=== PATIENT | female | born 2000 | race Asian ===

== ENCOUNTER 2025-07-19 15:46 | Emergency (ER) | payer MEDICAID, SELFPAY ==
--- NOTE | ~2025-07-19 | XR_ITS ---
CLINICAL HISTORY: cough x3 weeks 2 view chest x-ray Comparison: None provided Findings: No consolidation or effusion. Normal size heart. No acute fracture. IMPRESSION: 1. No acute findings. This document has been electronically signed by: Wellington Hobson MD on 07/19/2025 22:21:04
[2025-07-19 16:09] VITALS: BP 128/61; PULSE 68; RESP 16; TEMP 36.4; O2SAT 100; BMI 26.4
--- NOTE | 2025-07-19 16:12 | ED_ITS ---
HPI - General Adult General Chief complaint: Upper Respiratory Symptoms Stated complaint: cold and sore throat symptoms Time Seen by Provider: 07/19/25 19:58 Source: patient Mode of arrival: ambulatory Limitations: no limitations History of Present Illness ED Provider: JUANY CORBIN PA-C HPI narrative: 25 year old female presents tot he ED today for evaluation of sore throat, nonproductive cough, and subjective fevers x 3 weeks. She has not trialed any [id number] medications for her symptoms. Related Data Previous Rx's ?Medication ?Instructions ?Recorded benzonatate 100 mg capsule 100 mg PO BID PRN cough #20 caps 07/19/25 Allergies Allergy/AdvReac Type Severity Reaction Status Date / Time No Known Allergies Allergy Verified 07/19/25 16:12 Review of Systems 2 Review of Systems: Yes all other systems are reviewed and are negative [facility] Past Medical History Attestation statement: The following information was validated with the patient. Source: old records reviewed and nursing notes reviewed Social History Social History Advance Directives: No Advance Directives Information Provided: Yes Physical Exam ED Vital Signs: Vital Signs - 24 hr 07/19/25 16:09 Temperature 97.6 F Pulse Rate 68 Respiratory Rate 16 Blood Pressure 128/61 Pulse Oximetry 100 Oxygen Delivery Method Room Air BMI result Body Mass Index 26.4 Vital signs stable, afebrile General: Well appearing, in no acute distress. Skin: Warm, dry, intact. No rashes or lesions. Head: Normocephalic, atraumatic. EENT: Hearing is intact b/l. Conjunctiva clear. Sclera is anicteric. PERRLA. EOM intact. Moist mucous membranes.?posterior oropharynx mildly erythematous. No edema. No tonsillar exudates. No peritonsillar masses. Uvula midline. Controlling secretions, speaking complete sentences Neck: Supple without LAD Cardiac: Chest wall symmetric. RRR Lungs: Normal respiratory effort without accessory muscle use. CTA bilaterally. No rales, rhonchi, or wheezes.? Ext: Upper and lower extremities atraumatic, without tenderness, deformity, swelling or erythema Neuro: AOx3. Normal speech. Ambulating with steady gait Course Course Course Narrative: This is a rapid medical exam performed by Lee Ann Byers NP: Additional HPI, ROS, PE not included below will be deferred to primary provider. Patient is a 25y/o F presenting with complaint of cough, sore throat, subjective fevers. Also specifically requesting A1c level. Plan: strep and viral swabs Reevaluation(s) Reevaluation #1: Labs unremarkable. Strep, COVID, flu negative. Chest x-ray without infiltrate or consolidation to suggest pneumonia. > not consistent with this. Will send patient home with Benja Amlaguer. Advised PCP follow-up up. Medical Decision Making Medical Decision Making [facility] Narrative: 25 year old female presents tot he ED today for evaluation of sore throat, nonproductive cough, and subjective fevers x 3 weeks. Vital signs stable, afebrile. Not hypoxic. She is well-appearing in no acute distress. Exam benign. Differential diagnosis includes viral syndrome, strep throat, pneumonia, bronchitis Plan for viral swabs, screening labs and chest x-ray. Anticipate discharge home. Differential Diagnosis Differential Diagnoses: The differential diagnosis associated with the presentation includes as above. Admission/Observation not indicated. Lab Data [facility] Lab Attestation statement: I reviewed the patient's lab results. as above. 07/19/25 16:24 07/19/25 16:24 Labs: Lab Results 07/19/25 07/19/25 07/19/25 Range/Units 16:21 16:22 16:24 WBC 8.3 (4.8-10.8) X10*3/uL RBC 4.62 (4.20-5.50) X10*6/uL Hgb 11.1 L (12.0-16.0) g/dl Hct 34.4 L (37.0-47.0) % MCV 74.5 L (80.0-98.0) fL MCH 24.0 L (27.0-33.0) pg MCHC 32.3 (31.0-35.0) g/dl RDW 13.7 (11.0-16.0) % Plt Count 367 (160-400) X10*3/uL MPV 9.7 (9.4-12.3) fL Immature Gran % (Auto) 0.5 H (0.0-0.4) % Neut % (Auto) 62.1 (45-73) % Lymph % (Auto) 27.4 (20-40) % [place] % (Auto) 8.5 (2-11) % Eos % (Auto) 1.3 (0-4) % Baso % (Auto) 0.2 (0-2) % Lymph # (Auto) 2.3 (1.2-4.9) X10*3/uL [place] # (Auto) 0.7 (0.1-1.2) X10*3/uL Eos # (Auto) 0.1 (0.0-0.4) X10*3/uL Baso # (Auto) 0.0 (0.0-0.2) X10*3/uL Abs Immat Gran (auto) 0.04 H (0.00-0.03) X10*3/uL Absolute Neuts (auto) 5.1 (2.0-8.3) x10*3/uL Absolute Nucleated RBC 0.000 (0.0-0.012) X10*3/uL Nucleated RBC % (auto) 0.0 (0.0-0.2) /100WBC Sodium 140 (135-145) mmol/L Potassium 3.7 (3.3-5.1) mmol/L Chloride 107 (96-108) mmol/L Carbon Dioxide 27 (22-29) mmol/L Anion Gap 10 L (12-20) BUN 9 (9-16) mg/dL Creatinine 0.56 (0.5-1.4) mg/dL Estim Creat Clear Calc 131.1 Estimated GFR > 60 Random Glucose 78 (60-115) mg/dL Calcium 9.1 (8.4-10.2) mg/dL Total Bilirubin 0.3 (0.0-1.0) mg/dL AST 18 (5-31) U/L ALT 17 (0-31) U/L Alkaline Phosphatase 65 (39-117) U/L Total Protein 7.3 (6.5-8.0) g/dL Albumin 4.5 (3.5-5.0) g/dL Beta HCG, Quant < 2 mIU/mL COVID-19 (HEIDI) Negative (Negative) COVID-19 Clin Com See Note Influenza Type A (JHONY) Negative (Negative) Influenza Type B (JHONY) Negative (Negative) Influenza A & B Note See Note S. pyogenes GrpA JHONY Negative (Negative) Independent Interpretation I performed an independent interpretation of an: Plain X-Ray Interpretation: Chest x-ray without infiltrate or consolidation Radiology Impression Discussion of test interpretation with radiology: I have reviewed the radiologist's reading. Radiologist Impression: Procedure(s): XR chest 2V Accession Number(s): [id number] cc: Physician,Unknown ; Juany Corbin PA~ Reason for Exam: cough x3 weeks CLINICAL HISTORY: cough x3 weeks 2 view chest x-ray Comparison: None provided Findings: No consolidation or effusion. Normal size heart. No acute fracture. IMPRESSION: 1. No acute findings. This document has been electronically signed by: Wellington Hobson MD on 07/19/2025 22:21:04 Prescription Management I considered prescription management with: Other (Venussalariella Almaguer) Social Determinants Patient?s care significantly limited by Social Determinants of Health including: Other Social Determinant of Health Critical Care Time Critical Care Time Critical Care Time: No Discharge Plan Discharge Clinical Impression: Viral syndrome Patient Disposition: Home, Self-Care Instructions: Viral Syndrome (ED) Additional Instructions: You were evaluated in the ED today for upper respiratory symptoms. You tested negative for COVID, flu and strep throat. Your chest x-ray does not demonstrate pneumonia. Your blood work today is reassuring. I am sending Benja Almaguer to your pharmacy for you to take as needed for cough. You may purchase [id number] Cepacol throat lozenges. You may take Tylenol and Motrin at home as needed for pain or fevers. Return with any new or worsening symptoms. In the case of an emergency call 911. Prescriptions: New benzonatate 100 mg capsule 100 mg PO BID PRN (Reason: cough) Qty: 20 0RF Referrals: Physician,Unknown J [Primary Care Provider, Medical] Print Language: Greek
[2025-07-19 16:34] LABS: Hematocrit 34.4 % (37.0-47.0); Hemoglobin 11.1 g/dl (12.0-16.0); Imm Gran Abs Auto 0.04 X10*3/uL (0.00-0.03); Imm Gran Pct Auto 0.5 % (0.0-0.4); Lymphocytes Absolute Auto 2.3 X10*3/uL (1.2-4.9); MANUAL DIFF FLAG NO; Mean Corpuscular HGB Conc 32.3 g/dl (31.0-35.0); Mean Corpuscular Hemoglobin 24.0 pg (27.0-33.0); Mean Corpuscular Volume 74.5 fL (80.0-98.0); NRBC Abs Auto 0.000 X10*3/uL (0.0-0.012); NRBC Pct Auto 0.0 /100WBC (0.0-0.2); Platelet Count 367 X10*3/uL (160-400); Red Blood Count 4.62 X10*6/uL (4.20-5.50); White Blood Count 8.3 X10*3/uL (4.8-10.8)
[2025-07-19 16:44] LABS: IDNOW Serial# 58CA691E; Strep A Nucleic Acid Negative (Negative)
[2025-07-19 16:52] LABS: COVID-19 Test Negative (Negative); IDNOW Serial# 08D9AD1C
[2025-07-19 16:57] LABS: IDNOW Serial# 55D5AD1C; Influenza B2 Negative (Negative)
[2025-07-19 16:57] LABS: Alanine Aminotransferase 17 U/L (0-31); Albumin Level 4.5 g/dL (3.5-5.0); Alkaline Phosphatase 65 U/L (39-117); Anion Gap 10 (12-20); Aspartate Amino Transferase 18 U/L (5-31); Blood Urea Nitrogen 9 mg/dL (9-16); Calcium 9.1 mg/dL (8.4-10.2); Carbon Dioxide 27 mmol/L (22-29); Chloride 107 mmol/L (96-108); Creatinine Clr Calc Pharmacy 131.1; Estimated Glomerular Filt Rate > 60; Potassium 3.7 mmol/L (3.3-5.1); Sodium 140 mmol/L (135-145); Total Protein 7.3 g/dL (6.5-8.0)
[2025-07-19 22:39] VITALS: BP 118/72; PULSE 79; RESP 16; TEMP 36.7; O2SAT 97; O2SAT 99
[2025-07-19 22:40] VITALS: BP 118/72; PULSE 79; RESP 16; TEMP 36.7; O2SAT 99
== END 2025-07-19 22:40 | disposition home or self-care (01) ==
PROVIDERS: Registered Nurse Emergency; Emergency Provider Emergency Medicine
DX: B34.9 Viral infection, unspecified (principal); J02.9 Acute pharyngitis, unspecified; R05.9 Cough, unspecified; R50.9 Fever, unspecified
CPT/HCPCS: 36415; 71046; 80053; 84702; 85025; 87502; 87635; 87651; 99283; 99284

== ENCOUNTER → 2025-07-19 21:17 | Outpatient (BNV) | payer MEDICAID, SELFPAY | PROVIDERS: Emergency Provider Emergency Medicine; Visit Provider Radiology Diagnostic Radiology | DX: R05.9 Cough, unspecified (principal) | CPT/HCPCS: 71046 ==